=== PATIENT | female | born 1985 | race African-American/Black ===

== ENCOUNTER 2017-05-05 10:49 | Inpatient (IN) ==
[2017-05-05] MEDS ORDERED: BUTORPHANOL 2 MG/ML VIAL IV PRN (11:23)
[2017-05-05] MEDS ORDERED: LACTATED RINGERS 500 ML IV PRN (11:23)
[2017-05-05] MEDS ORDERED: ONDANSETRON 4 MG/2 ML VIAL IV PRN ×2 (11:23→13:18)
[2017-05-05] MEDS ORDERED: OXYTOCIN/LR 20 UNIT/1,000 ML BAG IV ONE ×2 (11:25→13:18)
[2017-05-05] MEDS ORDERED: LACTATED RINGERS 1,000 ML IV SCH (11:30)
[2017-05-05 11:49] LABS: Basophils % 0.2 % (0.0-0.8); Eosinophils % 0.3 % (0.00-10.9); Hematocrit 34.9 VOL% (35.7-47.0); Hemoglobin 11.7 GM/DL (12.0-16.0); Immature Granulocytes % 0.9 %; Lymphocytes % 17.7 % (21.3-54.2); Mean Corpuscular HGB Conc 33.5 GM/DL (32-36); Mean Corpuscular Hemoglobin 29 PG (27-34); Mean Corpuscular Volume 86.6 FL (87-102); Mean Platelet Volume 10.1 FL (9.6-12.0); Monocytes # 0.7 10*3/uL (0.11-0.8); Monocytes % 6.3 % (1.7-12.7); Neutrophils # 8.2 10*3/uL (1.4-7.4); Neutrophils % 74.6 % (38.7-73.9); Platelet Count 322 T/CUMM (130-400); Red Blood Count 4.03 MC/CUMM (3.8-5.5); Red Cell Distribution Width 13.8 % (9.3-17.3)
[2017-05-05] MEDS ORDERED: LIDOCAINE 1% 50 ML VIAL ONE (12:02)
[2017-05-05] MEDS ORDERED: METHYLERGONOVINE 0.2 MG/1 ML AMP ONE (12:03)
[2017-05-05] MEDS ORDERED: miSOPROStol 200 MCG TABLET ONE (12:03)
--- NOTE | 2017-05-05 12:40 | History and Physical Update ---
History and Physical Update - History and Physical H&P was reviewed, the patient examined and there: are no changes in the patients condition since last H&P was completed. - Dictation Physical: refer to scanned H&P - Physical Exam Mental Status: alert and oriented Heart: regular rate and rhythm Lung: clear to auscultation Abdomen: within normal limits Vitals: within normal limits History and Physical Changes: Pt presented to L&D in active labor dilated 7 cm with bulging BOW. Pt denies complications.
[2017-05-05] MEDS ORDERED: RHO(D) IMMUNE GLOBULIN 300 MCG SYRINGE IM ONE (13:18)
[2017-05-05] MEDS ORDERED: BENZOCAINE 20%/MENTHOL 0.5% SPRAY 56 GM CAN TOP PRN (13:18)
[2017-05-05] MEDS ORDERED: DIPH/TET/ACEL PERT BOOSTER VACCINE 0.5 ML VIAL IM ONE (13:18)
[2017-05-05] MEDS ORDERED: LANOLIN 50% CREAM 0.3 OZ TUBE TOP PRN (13:18)
[2017-05-05] MEDS ORDERED: oxyCODONE/ACETAMINOPHEN 5-325 MG TABLET PO PRN ×3 (13:18→19:31)
[2017-05-05] MEDS ORDERED: MEASLES/MUMPS/RUBELLA VACCINE 0.5 ML VIAL SUBCUT ONE (13:18)
[2017-05-05] MEDS ORDERED: WITCH HAZEL PADS 100/JAR TOP PRN (13:18)
[2017-05-05] MEDS ORDERED: HYDROCORTISONE 2.5% RECTAL CREAM 30 GM TUBE TOP PRN (13:18)
[2017-05-05] MEDS ORDERED: BISACODYL 10 MG SUPP RECTAL PRN (13:18)
[2017-05-05] MEDS ORDERED: ACETAMINOPHEN 325 MG TABLET PO PRN (13:18)
--- NOTE | 2017-05-05 13:22 | Operative Note ---
Date of procedure: 05/05/17 Pre-op diagnosis: 39 wks in active labor with adanced dilation Post-op diagnosis: same Procedure: Delivery note. Patient progressed to complete and pushing and delivered a viable female over intact perineum. Baby was bulb suctioned on the perineum. Cord blood was collected and placenta was delivered intact. Fundus is firm. Estimated blood loss 200 mL. Complications none. Patient is stable and the baby is stable. Anesthesia: none Surgeon / Physician: Mary Castaneda Estimated blood loss: other (200cc) Specimens: other (placenta to path; cord blood to lab) Condition: stable Disposition: no change Results - Labs CBC & BMP: 05/05/17 11:43
[2017-05-05] MEDS: IBUPROFEN 800 MG TABLET PO PRN ×2 (13:39→23:51)
[2017-05-05] MEDS: oxyCODONE/ACETAMINOPHEN 5-325 MG TABLET PO PRN ×2 (19:37→23:51)
[2017-05-05] MEDS: DOCUSATE SODIUM 100 MG CAPSULE PO SCH (21:09)
[2017-05-06 05:24] LABS: Basophils % 0.3 % (0.0-0.8); Eosinophils # 0.2 10*3/uL (0.0-0.87); Eosinophils % 1.6 % (0.00-10.9); Hematocrit 31.9 VOL% (35.7-47.0); Hemoglobin 10.6 GM/DL (12.0-16.0); Immature Granulocytes % 0.8 %; Lymphocytes # 3.3 10*3/uL (1.4-4.0); Lymphocytes % 27.4 % (21.3-54.2); Mean Corpuscular HGB Conc 33.2 GM/DL (32-36); Mean Corpuscular Hemoglobin 29 PG (27-34); Mean Corpuscular Volume 87.2 FL (87-102); Mean Platelet Volume 10.9 FL (9.6-12.0); Monocytes % 8.2 % (1.7-12.7); Neutrophils # 7.4 10*3/uL (1.4-7.4); Neutrophils % 61.7 % (38.7-73.9); Platelet Count 300 T/CUMM (130-400); Red Blood Count 3.66 MC/CUMM (3.8-5.5); Red Cell Distribution Width 14.2 % (9.3-17.3)
[2017-05-06] MEDS: IBUPROFEN 800 MG TABLET PO PRN ×3 (07:46→18:18)
[2017-05-06] MEDS: DOCUSATE SODIUM 100 MG CAPSULE PO SCH ×3 (07:47→20:31)
--- NOTE | 2017-05-06 07:58 | OB/GYN Progress Note ---
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 Exam COUNTERINTELLIGENCE/HUMINT SPECIALIST - Constitutional Vitals: Vital Signs Temp Pulse Resp BP Pulse Ox 05/06/17 07:16 97.2 F L 75 18 122/67 97 05/06/17 04:00 97.6 F 83 18 135/83 96 05/05/17 23:51 98.0 F 84 20 136/76 97 05/05/17 19:37 97.9 F 82 18 133/67 96 05/05/17 18:10 78 17 120/56 98 05/05/17 17:10 97.6 F 77 18 159/74 98 05/05/17 16:10 73 19 142/75 98 05/05/17 15:40 79 18 134/64 98 05/05/17 15:10 97.8 F 77 19 146/85 98 05/05/17 12:00 97.2 F L 82 20 126/73 General appearance: normal weight, no acute distress - Head Head exam: Present: normal inspection, normocephalic - Eye Eye exam: Present: EOMI - Respiratory Respiratory exam: Present: clear to auscultation bilaterally - Cardiovascular Cardiovascular exam: Present: regular rate and rhythm - GI/Abdominal GI/Abdominal exam: Present: soft (fundus firm, nontender) - Extremities Exam Extremities exam: Present: normal inspection - Neurological Exam Neurological exam: Present: alert, oriented X3 - Psychiatric Psychiatric exam: Present: normal affect, normal mood - Skin Skin exam: Present: normal color, warm Results - Labs CBC & BMP: 05/06/17 04:27 Lab Results: I have reviewed the past 24 hour labs
[2017-05-06] MEDS: oxyCODONE/ACETAMINOPHEN 5-325 MG TABLET PO PRN ×3 (13:00→22:16)
[2017-05-06] MEDS ORDERED: ALUMINUM/MAGNES/SIMETH MAX STR 30 ML UDCUP PO PRN (21:45)
[2017-05-07] MEDS: IBUPROFEN 800 MG TABLET PO PRN ×2 (01:26→07:04)
[2017-05-07] MEDS: oxyCODONE/ACETAMINOPHEN 5-325 MG TABLET PO PRN (07:05)
[2017-05-07 07:23] VITALS: BP 129/69
[2017-05-07] MEDS: DOCUSATE SODIUM 100 MG CAPSULE PO SCH (08:58)
== END 2017-05-07 10:30 | disposition home or self-care (01) | DRG 560 ==
LOC: N.LDOUT 10:49 → N.LD 10:50 → N.OB 14:54
PROVIDERS: ADMIT Obstetrics & Gynecology; ATTEND Obstetrics & Gynecology